=== PATIENT | male | born 1950 | race Caucasian/White ===

== ENCOUNTER 2020-12-04 19:11 | Emergency (ER) | payer MEDICARE ==
[~2020-12-04] VITALS: Ht 175.3 cm; Wt 63.6 kg
[2020-12-04 19:19] VITALS: Ht 175.3 cm; Wt 63.6 kg
[2020-12-04 19:56] LABS: BASOPHILS 0.1 % (0-2); EOSINOPHILS 0.1 % (0-7); HEMATOCRIT 49.7 % (42.0-54.0); HEMOGLOBIN 16.3 g/dL (13.5-17.5); IMMATURE GRANULOCYTES 0.4 % (0-5); LYMPHOCYTE ABS# 0.97 10x3/uL (1.32-3.57); LYMPHOCYTES 5.5 % (15-50); MCH 32.3 pg (26.0-34.0); MCHC 32.8 g/dL (31.0-37.0); MCV 98.6 fL (80.0-100.0); MEAN PLATELET VOLUME 9.1 fL (7.4-10.4); NEUTROPHIL ABS# 15.71 10x3/uL (1.78-5.38); NEUTROPHILS 89.9 % (40-80); PLATELET COUNT 252 10x3/uL (130-400); RBC 5.04 10x6/uL (4.20-6.10); RDW 13.3 % (11.5-14.5); WBC 17.5 10x3/uL (4.8-10.8)
[2020-12-04 20:05] LABS: APTT 33.8 SECONDS (22.8-39.4); INR 1.09 (0.85-1.17); PROTIME 13.1 SECONDS (11.6-15.0)
[2020-12-04 20:10] LABS: CALC OSMOLALITY 271 mosm/kg (275-300); CALCIUM 9.1 mg/dL (8.5-10.1); CARBON DIOXIDE 26.8 mmol/L (21.0-32.0); CHLORIDE - SERUM 98 mmol/L (98-107); CREATININE - SERUM 1.1 mg/dL (0.6-1.3); GLUCOSE 91 mg/dL (74-106); POTASSIUM - SERUM 4.2 mmol/L (3.5-5.1); SODIUM 137 mmol/L (136-145); UREA NITROGEN 8 mg/dL (7-18); eGFR NON AFRICAN AMERICAN 70 mL/min (90-120)
[2020-12-04 20:33] LABS: ALBUMIN 3.8 g/dL (3.4-5.0); ALKALINE PHOSPHATASE 75 U/L (30-120); ALT (SGPT) 22 U/L (10-68); BILIRUBIN - TOTAL 0.99 mg/dL (0.2-1.3); CREATINE KINASE 231 UL (21-232); MAGNESIUM - SERUM 1.6 mg/dL (1.8-2.4); PRO BNP 60 pg/mL (0-125); PROTEIN - SERUM 6.9 g/dL (6.4-8.2); THYROID STIMULATING HORMONE 1.29 uIU/mL (0.36-3.74)
[2020-12-04 20:36] LABS: LIPASE 29 U/L (73-393); TROPONIN-I < 0.017 ng/mL (0.000-0.060)
[2020-12-04 21:16] LABS: UDS - AMPHET NEGATIVE QUAL (NEGATIVE); UDS - BARB NEGATIVE QUAL (NEGATIVE); UDS - BENZO POSITIVE QUAL (NEGATIVE); UDS - COCAINE NEGATIVE QUAL (NEGATIVE); UDS - OPIATE NEGATIVE QUAL (NEGATIVE); UDS - PCP NEGATIVE QUAL (NEGATIVE); UDS - THC POSITIVE QUAL (NEGATIVE)
[2020-12-04] MEDS ORDERED: AUGMENTIN 875-11 TAB PO (21:19)
[2020-12-04] MEDS ORDERED: HYDROCODONE-AC1 EAC2 PO (21:22)
[2020-12-04 21:24] LABS: BILIRUBIN NEGATIVE (NEGATIVE); KETONE SMALL mg/dL (NEGATIVE); NITRITE NEGATIVE (NEGATIVE); UROBILINOGEN NORMAL mg/dL (< 2)
[2020-12-04 21:52] VITALS: BP 149/97
== END 2020-12-04 21:52 | disposition home or self-care (01) ==
LOC: D.ER 19:11
PROVIDERS: Family Medicine
DX: S02.2XXA Fracture of nasal bones, initial encounter for closed fracture (principal); W19.XXXA Unspecified fall, initial encounter; Y93.9 Activity, unspecified; Y92.9 Unspecified place or not applicable